=== PATIENT | male | born 1990 | race Caucasian/White ===

== ENCOUNTER 2019-02-23 02:14 | Emergency (ER) | payer SELFPAY ==
[~2019-02-23] VITALS: Ht 160 cm; Wt 73.0 kg
[2019-02-23 02:22] VITALS: BP 95/55
[2019-02-23] MEDS ORDERED: PERTUSS(ACELL),DIPH,TET VAC/PF 0.5 ML VIAL IM ONE ×2 (02:30→02:32)
[2019-02-23] MEDS ORDERED: CeFAZolin 2 GM/DEXTROSE 50 ML IV ONE (02:30)
[2019-02-23] MEDS ORDERED: CeFAZolin 1 GM/DEXTROSE 100 ML IV ONE (02:31)
[2019-02-23] MEDS ORDERED: CeFAZolin 1 GM/DEXTROSE 50 ML IV ONE ×2 (03:00)
== END 2019-02-23 02:30 | disposition short-term general hospital (02) ==
LOC: EDUNIT# 02:14 → EDSEX 02:16 → EDBD 02:16 → EMS 02:16
DX: S41.111A Laceration without foreign body of right upper arm, initial encounter (principal); S31.813A Puncture wound without foreign body of right buttock, initial encounter; S31.109A Unspecified open wound of abdominal wall, unspecified quadrant without penetration into peritoneal cavity, initial encounter; S41.001A Unspecified open wound of right shoulder, initial encounter; W34.00XA Accidental discharge from unspecified firearms or gun, initial encounter; Y93.89 Activity, other specified; Y92.89 Other specified places as the place of occurrence of the external cause; Y99.8 Other external cause status
CPT/HCPCS: 71045; 74018; 99291; J0690; 90715